=== PATIENT | male | born 1985 | race Two or more races ===

== ENCOUNTER 2025-01-15 13:14 | Emergency (ER) | payer MEDICAID, SELFPAY ==
[2025-01-15 13:19] VITALS: BMI 37.1
[2025-01-15 13:27] VITALS: BP 146/96; PULSE 117; RESP 20; TEMP 37; O2SAT 97
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
[2025-01-15] MEDS: DIPHTH,PERTUSS(ACELL),TET VAC 0.5 ML SYR- ADULT IMi (15:14)
[2025-01-15] MEDS: oxyCODONE/APAP 5/325 TABLET 1 TAB PO (15:14)
== END 2025-01-15 15:35 | disposition home or self-care (01) ==
PROVIDERS: Emergency Provider Emergency Medicine
DX: S42.001A Fracture of unspecified part of right clavicle, initial encounter for closed fracture (principal); S00.01XA Abrasion of scalp, initial encounter; R07.89 Other chest pain; Z23 Encounter for immunization; V89.2XXA Person injured in unspecified motor-vehicle accident, traffic, initial encounter; Y92.410 Unspecified street and highway as the place of occurrence of the external cause
CPT/HCPCS: 70450; 71250; 72125; 74176; 90471; 90715; 99284; A9270